=== PATIENT | male | born 1995 | race Two or more races ===

== ENCOUNTER 2017-09-14 11:53 | Emergency (ER) | payer SELFPAY ==
[2017-09-14 11:58] VITALS: RESP 16; TEMP 98.6
[2017-09-14] MEDS ORDERED: FLUORESCEIN SODIUM 1 MG STRIP OP ONE (12:07)
[2017-09-14] MEDS ORDERED: PROPARACAINE 0.5% 15 ML OPHT DROP ONE (12:07)
[2017-09-14] MEDS ORDERED: OXYCODONE/APAP 5/325 TAB PO ONE (12:22)
--- NOTE | 2017-09-14 12:25 | EDPHY ---
HPI/HX/ROS/PE/MDM Narrative: CHIEF COMPLAINT: Left eye pain and redness HPI: The patient is a 22-year-old male with no significant past medical history. He has a history of myopia and wears contact lenses. He complains of 2 days of severe pain to his left eye accompanied by redness, severe photophobia and blurry vision. He denies fever, discharge from [place], rhinorrhea. He has tried to use lubricating drops without any relief. He denies any chance of possible foreign body to his eye. 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 He denies any riding in his car with the windows open or riding a motorcycle etc. He states that his pain is relieved by marijuana. REVIEW OF SYSTEMS: Aside from elements discussed in the HPI, a comprehensive 10-point review of systems was reviewed and is negative. PMH: None significant. SOCIAL HISTORY: Works at a pizza shop. Smokes marijuana. PHYSICAL EXAM: General:Patient is alert, in no acute distress. ENT: Right eye is normal to inspection with a round and reactive pupil. Left eye shows severe scleral irritation without discharge. No signs of eye trauma. The anterior chamber appears somewhat cloudy. I am unable to perform an accurate pupillary exam as the patient cannot tolerate a slit-lamp exam. No evidence of globe rupture. Eye is extremely tender to palpation. Neck: Normal inspection. Full range of motion. Respiratory:No respiratory distress. Breath sounds normal bilaterally. Cardiovascular: Regular rate and rhythm. Strong peripheral pulses. Normal cap refill. Abdomen:The abdomen is nontender to palpation. There are no peritoneal signs. There are normal bowel sounds. Back: Normal to inspection. No tenderness to palpation. Skin: Normal color. No rash. Warm and dry. Extremities: Normal appearance. Full range of motion. Neuro: Oriented x3. Normal motor function. Normal sensory function. ED Course: Healthy 22 y/o male presents with two days of severe pain to his left eye. See exam findings for details. I was unable to perform an accurate pupillary exam as the patient could not tolerate a slit-lamp exam. Plan to consult with ophthalmology. 12:[address] Goldman, flexible machining system machinist. He will evaluate the patient here in the emergency department. Administered Percocet 5/325 for pain control. 13:[address] Goldman. Corneal ulcer present on exam. Patient was able to tolerate exam better following Percocet administration. Plan to discharge home in good condition with prescription for Gatifloxacin. He will follow up with Dr. Goldman on Saturday for further management. He is comfortable with this plan. - Data Points Medications Given: Gatifloxacin (Zymaxid 0.5%) 1 drops LEFTEYE Q2HRS WHILE AWAKE KAYLI Stop: 09/18/17 13:59 Last Admin: 09/14/17 13:11 Dose: 1 drop Discontinued Medications Oxycodone/Acetaminophen (Percocet 5/325) 1 tab PO EDNOW ONE Stop: 09/14/17 12:23 Last Admin: 09/14/17 12:25 Dose: 1 tab General Time Seen by Provider: 09/14/17 12:00 Initial Vital Signs: Initial Vital Signs Temperature (C) 37 C 09/14/17 11:56 Heart Rate 74 09/14/17 11:56 Respiratory Rate 16 09/14/17 11:56 Blood Pressure 111/93 H 09/14/17 11:56 O2 Sat (%) 97 09/14/17 11:56 O2 Delivery Mode Room Air Allergies/Adverse Reactions: No Known Allergies Allergy (Unverified 09/14/17 11:56) Home Medications: Medication Instructions Recorded NK [No Known Home Meds] 09/14/17 Departure - Departure Disposition: Home, Routine, Self-Care Clinical Impression: Corneal ulcer Condition: Good Instructions: Gatifloxacin (Into the eye), Corneal Ulcer (ED) Additional Instructions: 1. Follow up with Dr. Goldman on Saturday. 2. Use Gatifloxacin as prescribed. 1 drop into left eye every hour for 24 hours then every 2 hours 3. Return to the emergency department for worsening eye pain, loss of vision, if you incur any injury to your eye, or other worsening of condition. Referrals: Nils Goldman MD [Medical Doctor] - As per Instructions Report Scribed for: Murphy Ortega Report Scribed by: Margarita Saavedra Date of Report: 09/14/17 Time of Report: 13:14 Physician Review and Approval Statement: Portions of this note were transcribed by an ED scribe. I personally performed the history, physical exam, and medical decision making; and confirm the accuracy of the information in the transcribed note.
[2017-09-14 13:20] VITALS: BP 160/57; PULSE 65; O2SAT 95
[2017-09-14] MEDS ORDERED: GATIFLOXACIN 0.5% 2.5 ML OPHT DROPS LEFTEYE SCH (14:00)
== END 2017-09-14 13:18 | disposition home or self-care (01) ==
DX: H16.002 Unspecified corneal ulcer, left eye (principal)

== ENCOUNTER 2018-02-15 02:48 | Emergency (ER) | payer MEDICAID ==
[2018-02-15] MEDS ORDERED: OLANZapine 10 MG/2 ML VIAL ONE (02:54)
[2018-02-15] MEDS ORDERED: OLANZapine 10 MG/2 ML VIAL IM ONE (03:00)
--- NOTE | 2018-02-15 03:01 | EDPHY ---
H & P Stated Complaint: AMS Source: Patient, EMS, EMS notes reviewed Exam Limitations: Intoxication - Medical/Surgical History Hx Asthma: No Hx Chronic Respiratory Disease: No Hx Diabetes: No Hx Cardiac Disease: No Hx Renal Disease: No Hx Cirrhosis: No Hx Alcoholism: No Hx HIV/AIDS: No Hx Splenectomy or Spleen Trauma: No Other PMH: denies - Social History Smoking Status: Current every day smoker Time Seen by Provider: 02/15/18 02:53 HPI/ROS: HPI The patient presents brought in by ambulance for altered mental status. According to the police the patient was found lying in the position on a sidewalk on [facility] surrounded by a group of people. He was yelling and upset and was not making any sense. A friend mention to the police that he may have taken LSD and was drinking alcohol tonight. He was very agitated thus paramedics were called. When patient found that he was going to be transferred to the hospital he became more upset, yelling and screaming. He received Versed 5 mg IM with improvement in his mental status. He now is unable to answer any of my questions.. REVIEW OF SYSTEMS Constitutional: No fever, no chills. Eyes: No discharge. ENT: No sore throat. Cardiovascular: No chest pain, no palpitations. Respiratory: No cough, no shortness of breath. Gastrointestinal: No abdominal pain, no vomiting. Genitourinary: No hematuria. Musculoskeletal: No back pain. Skin: No rashes. Neurological: No headache. PMHx: Prior visit to the emergency department for eye pain Soc Hx: Probable LSD use and alcohol use tonight, found outside of a bar PHYSICAL General Appearance: Sedate, in 4 point restraints Eyes: Pupils equal, dilated, conjunctiva injected ENT, Mouth: Mucous membranes moist Respiratory: There are no retractions, lungs are clear to auscultation Cardiovascular: Tachycardic, regular rhythm Gastrointestinal: Abdomen is soft and non-tender, no masses, bowel sounds normal Neurological: A&O, moves all extremities Skin: Warm and dry, no rashes Musculoskeletal: Neck is supple non tender Extremities: symmetrical, full range of motion Psychiatric: Patient is mildly agitated (Riguzzi,Myah) Constitutional: Initial Vital Signs Temperature (C) 36.8 C 02/15/18 02:54 Heart Rate 131 H 07/07/18 02:54 Respiratory Rate 16 02/15/18 02:54 Blood Pressure 114/55 L 02/15/18 02:54 O2 Sat (%) 94 02/15/18 02:54 O2 Delivery Mode Room Air O2 (L/minute) 2 Allergies/Adverse Reactions: No Known Allergies Allergy (Unverified 09/14/17 11:56) Home Medications: Medication Instructions Recorded NK [No Known Home Meds] 09/14/17 Medical Decision Making Differential Diagnosis: This is a 22-year-old male who presents with altered mental status, presumed LSD and alcohol intoxication, responded to Versed 5 mg IM. Differential diagnosis includes polysubstance abuse, alcohol intoxication, less likely psychosis with underlying psychiatric disease. In the emergency department, patient was given Zyprexa for agitation with good result initially. He then required an additional Versed 5 mg IM for continued agitation. The patient was allowed to sleep and eventually felt a bit better. At 6:00 a.m. I awoke him and he did admit to using LSD in the afternoon yesterday. He denies any alcohol use. He denies any suicidal or homicidal ideations. The police had placed him on an M1 hold for grave disability. I will lift this hold. I anticipate he will be able to discharge later this morning when he is more awake. At 7:00 a.m., the case will be signed out to the oncoming provider Dr. Alfonso. ( Myah Mendez) Other Provider: I assumed care of the patient at 0700. Re-evaluation at 10:00 a.m.: Patient's blood alcohol level is 0. He is ambulatory and in no acute distress. No evidence of psychiatric disease. The patient is calling a friend to pick him up. The patient presents with altered mental status now resolved in the setting of LSD use. (Esteban Alfonso) - Data Points Medications Given: Discontinued Medications Midazolam HCl (Versed) 2 mg IVP EDNOW ONE Stop: 02/15/18 03:30 Last Admin: 02/15/18 03:31 Dose: 2 mg Midazolam HCl (Versed) 2 mg IVP EDNOW ONE Stop: 02/15/18 04:13 Last Admin: 02/15/18 06:01 Dose: Not Given Olanzapine (Zyprexa Injection) 10 mg IM EDNOW ONE Stop: 02/15/18 03:01 Last Admin: 02/15/18 03:01 Dose: 10 mg Departure - Departure Disposition: Home, Routine, Self-Care Clinical Impression: Overdose of LSD Qualifiers: Encounter type: initial encounter Injury intent: accidental or unintentional Qualified Code(s): T40.8X1A - Poisoning by lysergide [LSD], accidental ( unintentional), initial encounter Condition: Good Instructions: Hallucinations (ED) Additional Instructions: Please do not use LSD. Referrals: [facility],. [Clinic] - As per Instructions
[2018-02-15] MEDS ORDERED: MIDAZOLAM 2 MG/2 ML VIAL ONE (03:28)
[2018-02-15] MEDS ORDERED: MIDAZOLAM 2 MG/2 ML VIAL IVP ONE ×2 (03:29→04:12)
[2018-02-15 09:51] VITALS: BP 120/70
== END 2018-02-15 09:51 | disposition home or self-care (01) ==
LOC: EDUNIT#
DX: T40.8X1A Poisoning by lysergide [LSD], accidental (unintentional), initial encounter (principal); F17.200 Nicotine dependence, unspecified, uncomplicated
CPT/HCPCS: 96374; J2250